=== PATIENT | male | born 1970 | race American Indian/Alaskan Native ===

== ENCOUNTER 2021-08-22 13:33 | Emergency (ER) | payer OTHER ==
[2021-08-22] MEDS ORDERED: Acetaminophen 500 MG Tab PO ONE (14:04)
--- NOTE | 2021-08-22 14:11 | EDM.PDOC ---
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 The patient reports he sustained the injury approximately one hour prior when a piece of scaffolding fell atop his head. He denies loss of consciousness and remembers the event in entirety; he denies history of blood thinner use or dyscrasias. The patient denies vision changes, pupillary changes, seizure-like activity, or lethargy. He has not taken any medications or performed supportive cares for his symptoms. - Related Data Allergies Allergy/AdvReac Type Severity Reaction Status Date / Time No Known Allergies Allergy Verified 08/22/21 13:42 Home Meds: Home Meds . [No Known Home Meds] 08/22/21 [History] Past Medical History - Past Health History Medical/Surgical History: Denies Medical/Surgical History Social & Family History - Family History Family Medical History: No Pertinent Family History - Tobacco Use Tobacco Use Status *Q: Never Tobacco User - Caffeine Use Caffeine Use: Reports: None - Recreational Drug Use Recreational Drug Use: No ED ROS GENERAL - Review of Systems Review Of Systems: Comprehensive ROS is negative, except as noted in HPI. ED EXAM, SKIN/RASH Exam: See Below Exam Limited By: No Limitations General Appearance: Alert, No Apparent Distress, Anxious Eye Exam: Bilateral Eye: EOMI, Normal Inspection, PERRL (3mm) Ears: Normal External Exam, Normal Canal, Hearing Grossly Normal, Normal TMs Nose: Normal Inspection, Normal Mucosa, No Blood Throat/Mouth: Normal Inspection, Normal Lips, Normal Gums, Normal Oropharynx, Normal Voice, No Airway Compromise. No: Normal Teeth (Poor dentition) Head: Atraumatic, Normocephalic Neck: Normal Inspection, Supple, Non-Tender, Full Range of Motion. No: Lymphadenopathy (L), Lymphadenopathy (R) Respiratory/Chest: No Respiratory Distress, Lungs Clear, Normal Breath Sounds, No Accessory Muscle Use, Chest Non-Tender. No: Crackles, Rales, Rhonchi, Wheezing, Stridor Cardiovascular: Normal Peripheral Pulses, Regular Rate, Rhythm, No Edema, No Gallop, No JVD, No Murmur, No Rub Peripheral Pulses: 2+: Radial (L), Radial (R) GI/Abdominal: Normal Bowel Sounds, Soft, Non-Tender (Male) Exam: Deferred Rectal (Males) Exam: Deferred Back Exam: Normal Inspection, Full Range of Motion Extremities: Normal Inspection, Normal Range of Motion, Normal Capillary Refill Neurological: Alert, Oriented, CN II-XII Intact, Normal Cognition, Normal Gait, Normal Reflexes, No Motor/Sensory Deficits. No: Memory Loss Remote Events, Memory Loss Recent Events Psychiatric: Normal Affect, Normal Mood Skin: Warm, Dry, Intact, Normal Color, No Rash, Wound/Incision (2cm laceration to left frontal scalp). No: Cyanosis, Jaundice, Mottled, Pallor Location, Skin: Head Characteristics: Linear Associated features: Warmth, Tenderness, Swelling. No: Inflammation, Crusting Lymphatic: No Adenopathy ED SKIN PROCEDURES - Laceration/Wound Repair Upper Mid-Anterior [place] Head Appearance: Superficial Distal NVT: Neuro & Vascular Intact, No Tendon Injury Skin Prep: Chlorhexidine (Hibiciens), Saline Exploration/Debridement/Repair: Wound Explored, In a Bloodless Field, Explored to Base, No Foreign Material Found, Wound Margins Revised Closed with: Virgen (4) Lac/Wound length In cm: 2 Drain Placement: No Sterile Dressing Applied: Nurse Tetanus Status Addressed: Yes Complications: No Course - Vital Signs Last Recorded V/S: Last Vital Signs Temp 98.2 F 08/22/21 14:14 Pulse 77 08/22/21 14:14 Resp 16 08/22/21 14:14 BP 158/87 H 08/22/21 14:14 Pulse Ox 99 08/22/21 14:14 - Orders/Labs/Meds Meds: Medications Discontinued Medications Generic Name Dose Route Start Last Admin Trade Name Marisela PRN Reason Stop Dose Admin Acetaminophen 1,000 mg 08/22/21 14:04 08/22/21 14:08 Acetaminophen 500 Mg Tab PO 08/22/21 14:05 1,000 mg ONETIME ONE Administration - Re-Assessments/Exams Free Text/Narrative Re-Assessment/Exam: 08/22/21 Laceration to scalp cleansed and stapled without complication. Findings of examination reviewed with patient. Supportive cares for laceration/wound discussed. Patient instructed to follow up with primary care provider in 7 days for staple removal. Red flag signs and symptoms which would warrant immediate reevaluation reviewed. Patient verbalized understanding and agreement with the plan of care. Departure - Departure Time of Disposition: 14:19 Disposition: Home, Self-Care 01 Condition: Good Clinical Impression: Laceration of scalp without complication Qualifiers: Encounter type: initial encounter Qualified Code(s): S01.01XA - Laceration without foreign body of scalp, initial encounter - Discharge Information *PRESCRIPTION DRUG MONITORING PROGRAM REVIEWED*: Not Applicable *COPY OF PRESCRIPTION DRUG MONITORING REPORT IN PATIENT SIRISHA: Not Applicable Instructions: Laceration Care, Adult, Sutures, [place], or Adhesive Wound Closure, [id number] Forms: ED Department Discharge Additional Instructions: 1.) Follow up with your primary care provider in 7 days for staple removal. 2.) You may take ibuprofen (Advil/Motrin) 400mg every six hours, as pain and swelling persist. You may also take acetaminophen (Tylenol) 650mg every six hours, as pain persists. You may stagger these medications so you are taking a dose of either every three hours. 3.) You may apply cold compresses to the area as pain and swelling persist, 20 minutes every hour 4.) Keep wound clean and dry. Sepsis Event Note (ED) - Focused Exam Vital Signs: Vital Signs Temp Pulse Resp BP Pulse Ox 08/22/21 14:14 98.2 F 77 16 158/87 H 99
== END 2021-08-22 14:30 | disposition home or self-care (01) ==
LOC: DL.ED 13:33
DX: S01.01XA Laceration without foreign body of scalp, initial encounter (principal); W20.8XXA Other cause of strike by thrown, projected or falling object, initial encounter
CPT/HCPCS: 12001; 99282-25; A9270-GY